=== PATIENT | male | born 1985 | race Hispanic/Latino ===

== ENCOUNTER 2020-11-12 07:35 | Inpatient (IN) | payer BC ==
[~2020-11-12] VITALS: Ht 167.6 cm; Wt 69.9 kg
[2020-11-12 08:04] LABS: ABG HCO3 24.5 mmol/L (21.0-28.0); ABG OXYGEN SATURATION 94.4 % (95.0-99.0); ABG PCO2 32 mmHg (35-48)
[2020-11-12 08:24] LABS: BASOPHILS % (AUTO) 0.2 % (0.0-5.0); MEAN CORPUSCULAR HEMOGLOBIN 29.8 pg (27.0-33.0); MEAN CORPUSCULAR HGB CONC 34.3 g/dL (32.0-36.0); MEAN CORPUSCULAR VOLUME 86.8 fL (79-99); MONOCYTES % (AUTO) 2.6 % (3.0-13.0); NEUTROPHILS % (AUTO) 90.3 % (40.0-77.0); PLATELET COUNT (AUTO) 229 K/uL (130-400); RED BLOOD CELL COUNT(AUTO) 4.84 MIL/uL (4.50-6.20); WHITE BLOOD COUNT (AUTO) 12.5 K/uL (4.8-10.8)
[2020-11-12 08:39] LABS: BILIRUBIN,TOTAL 0.6 mg/dL (0.2-1.0); CREATININE 1.1 mg/dL (0.5-1.5); CRP QUANTITATIVE 130.6 mg/L (0.00-9.0); POTASSIUM 3.5 mmol/L (3.5-5.1); TOTAL PROTEIN, SERUM 7.4 g/dL (6.0-8.3)
[2020-11-12 09:08] VITALS: BP 110/60
[2020-11-12] MEDS ORDERED: DOXYCYCLINE 100MG+NS 250ML IV SCH (10:00)
[2020-11-12] MEDS ORDERED: PHARMACY COMMUNICATION**REMDESIVIR MISC SCH (10:00)
[2020-11-12] MEDS ORDERED: ONDANSETRON 4MG INJ IV PRN (10:00)
[2020-11-12] MEDS ORDERED: PHARMACY COMMUNICATION MISC SCH (10:00)
[2020-11-12] MEDS ORDERED: ALBUTEROL 0.083% 2.5 MG/3 ML INH IH SCH (10:00)
[2020-11-12] MEDS: DOXYCYCLINE 100MG+NS 250ML 250 ML IV SCH ×2 (10:55→20:25)
[2020-11-12] MEDS: DEXAMETHASONE SOD PHOSPHATE 4 MG/ML 1ML VIAL IVP SCH (10:55)
[2020-11-12] MEDS: BARICITINIB (EUA) 2 MG TABLET PO SCH (10:55)
[2020-11-12] MEDS: CEFTRIAXONE 1G VIAL IV SCH (10:55)
[2020-11-12 13:00] VITALS: BP 126/68
[2020-11-12] MEDS: ALBUTEROL INHALER 90MCG/INH IH SCH ×3 (14:16→19:47)
[2020-11-12 15:43] VITALS: BP 107/67
[2020-11-12 16:15] VITALS: BP 111/73
[2020-11-12 19:30] VITALS: BP 99/61
[2020-11-12] MEDS: GUAIFENESIN-DM 200/20 MG 10 ML PO PRN (19:38)
[2020-11-12] MEDS: ACETAMINOPHEN 325 MG TAB PO PRN (19:47)
[2020-11-12] MEDS: FAMOTIDINE 20MG TAB PO SCH (20:25)
[2020-11-12 23:13] VITALS: BP 110/62
[2020-11-13] MEDS: ALBUTEROL INHALER 90MCG/INH IH SCH ×6 (00:21→20:01)
[2020-11-13 03:48] VITALS: BP 102/62
[2020-11-13] MEDS ORDERED: ALBUHFA IH (04:01)
[2020-11-13] MEDS ORDERED: AZIT250T9 PO (04:01)
[2020-11-13] MEDS ORDERED: PRED50TA2 PO (04:01)
[2020-11-13] MEDS ORDERED: ALBU2.5V2 NEB (04:01)
[2020-11-13] MEDS ORDERED: BENZ-70 PO (04:01)
[2020-11-13 05:04] LABS: BASOPHILS % (AUTO) 0.1 % (0.0-5.0); HEMATOCRIT 41.3 % (42-54); MEAN CORPUSCULAR HEMOGLOBIN 29.3 pg (27.0-33.0); MEAN CORPUSCULAR HGB CONC 33.7 g/dL (32.0-36.0); MEAN CORPUSCULAR VOLUME 87.1 fL (79-99); PLATELET COUNT (AUTO) 278 K/uL (130-400); RED BLOOD CELL COUNT(AUTO) 4.74 MIL/uL (4.50-6.20); WHITE BLOOD COUNT (AUTO) 12.6 K/uL (4.8-10.8)
[2020-11-13] MEDS: ACETAMINOPHEN 325 MG TAB PO PRN ×2 (07:57→21:00)
[2020-11-13 08:25] VITALS: BP 102/62
[2020-11-13] MEDS: CEFTRIAXONE 1G VIAL IV SCH (08:59)
[2020-11-13] MEDS: DEXAMETHASONE SOD PHOSPHATE 4 MG/ML 1ML VIAL IVP SCH (08:59)
[2020-11-13] MEDS: DOXYCYCLINE 100MG+NS 250ML 250 ML IV SCH ×2 (08:59→20:01)
[2020-11-13] MEDS: BARICITINIB (EUA) 2 MG TABLET PO SCH (09:13)
[2020-11-13] MEDS: FAMOTIDINE 20MG TAB PO SCH ×2 (09:13→20:01)
[2020-11-13] MEDS: ENOXAPARIN SODIUM 40 MG/0.4 ML SYRINGE SQ SCH (09:14)
[2020-11-13 11:48] VITALS: BP 98/57
[2020-11-13 16:02] VITALS: BP 101/62
[2020-11-13 19:26] VITALS: BP 115/69
[2020-11-13] MEDS: GUAIFENESIN-DM 200/20 MG 10 ML PO PRN (20:59)
[2020-11-13 23:34] VITALS: BP 124/75
[2020-11-14] MEDS: ALBUTEROL INHALER 90MCG/INH IH SCH ×4 (00:32→12:46)
[2020-11-14 03:45] VITALS: BP 107/61
[2020-11-14 04:57] LABS: BASOPHILS % (AUTO) 0.2 % (0.0-5.0); HEMATOCRIT 43.5 % (42-54); LYMPHOCYTES % (AUTO) 5.7 % (21.0-51.0); MEAN CORPUSCULAR HEMOGLOBIN 29.2 pg (27.0-33.0); MEAN CORPUSCULAR HGB CONC 33.3 g/dL (32.0-36.0); MEAN CORPUSCULAR VOLUME 87.5 fL (79-99); MONOCYTES % (AUTO) 3.4 % (3.0-13.0); NEUTROPHILS % (AUTO) 89.6 % (40.0-77.0); PLATELET COUNT (AUTO) 331 K/uL (130-400); RED BLOOD CELL COUNT(AUTO) 4.97 MIL/uL (4.50-6.20); WHITE BLOOD COUNT (AUTO) 11.4 K/uL (4.8-10.8)
[2020-11-14 06:27] LABS: POTASSIUM 3.8 mmol/L (3.5-5.1)
[2020-11-14] MEDS: FAMOTIDINE 20MG TAB PO SCH (08:00)
[2020-11-14] MEDS: DOXYCYCLINE 100MG+NS 250ML 250 ML IV SCH (08:00)
[2020-11-14] MEDS: DEXAMETHASONE SOD PHOSPHATE 4 MG/ML 1ML VIAL IVP SCH (08:00)
[2020-11-14] MEDS: ENOXAPARIN SODIUM 40 MG/0.4 ML SYRINGE SQ SCH (08:01)
[2020-11-14] MEDS: BARICITINIB (EUA) 2 MG TABLET PO SCH (08:24)
[2020-11-14 09:02] VITALS: BP 99/57
[2020-11-14] MEDS: CEFTRIAXONE 1G VIAL IV SCH (09:30)
[2020-11-14 11:30] VITALS: BP 99/61
[2020-11-14] MEDS ORDERED: DEXA6TAB PO (15:01)
[2020-11-14] MEDS ORDERED: PANT40TA55 PO (15:01)
[2020-11-14] MEDS ORDERED: APIX2.5T PO (15:01)
[2020-11-14 15:19] LABS: HEMOGLOBIN A1C 5.6 % (4.0-6.0)
== END 2020-11-14 17:30 | disposition home or self-care (01) | DRG 177 ==
LOC: EDH 07:35 → EDHIP 09:31 → 4AH 16:09
PROVIDERS: ADMIT Internal Medicine; ATTEND Internal Medicine
PROC: XW0DXM6 Introduction of Baricitinib into Mouth and Pharynx, External Approach, New Technology Group 6 (ICD-10-PCS; principal; 2020-11-12)
DX: U07.1 COVID-19 (principal); J12.82 Pneumonia due to coronavirus disease 2019; J96.01 Acute respiratory failure with hypoxia; D68.69 Other thrombophilia
CPT/HCPCS: 36415; 36600; 71045; 80048; 80053; 82550; 82803; 83036; 84145; 84484; 85025; 85378; 85651; 86140; 87635; 87804; 93005; 93970; 94760; C9803; G0378; J0696; J1100; J1650; J3490

== ENCOUNTER 2023-02-03 14:31 | Emergency (ER) | payer BC, OTHER ==
[~2023-02-03] VITALS: Ht 167.6 cm; Wt 72.1 kg
[~2023-02-03 14:31] MED LIST: ALBU2.5V2 NEB; ALBUHFA IH; APIX2.5T PO; BENZ-226 PO; DEXA6TAB PO; PANT40TA55 PO
[2023-02-03] MEDS ORDERED: ACETAMINOPHEN 500 MG TABLET PO ONE (16:30)
[2023-02-03 18:46] VITALS: BP 147/74; PULSE 78; RESP 18; O2SAT 98
== END 2023-02-03 18:47 | disposition home or self-care (01) ==
LOC: EDH 14:31
DX: S09.8XXA Other specified injuries of head, initial encounter (principal); Z79.899 Other long term (current) drug therapy; W18.39XA Other fall on same level, initial encounter; Y93.89 Activity, other specified; Y92.89 Other specified places as the place of occurrence of the external cause; Y99.8 Other external cause status
CPT/HCPCS: 70450